=== PATIENT | female | born 1980 | race African-American/Black ===

== ENCOUNTER 2016-05-25 12:54 | Inpatient (IN) | payer BC ==
--- NOTE | ~2016-05-25 | HP ---
History And Physical [place] [id number] [place] [place]. [address] NAME: STEPHEN BREWER : 80 STATUS : ADM IN [facility]#: [id number] AGE: 35 ADM/REG DATE : 05/25/16 MR#: [id number] REPORT SERV DATE: 05/25/16 DICTATED BY: VELMA MARSH DATE: 05/25/16 REPORT STATUS : Draft TRANSCRIBED BY: MODL DATE: 05/25/16 DATE OF ADMISSION: 05/25/2016 REASON FOR ADMISSION: Typical sickle cell crisis. ONCOLOGIST: Dr. Nava. PALLIATIVE CARE: Dr. Allred. CHIEF COMPLAINT: "I started having some left shoulder pain again." HISTORY OF PRESENT ILLNESS: A 35-year-old female with a known history of sickle cell with the last crisis approximately three months ago, followed by Dr. Nava along with Dr. Allred in the outpatient setting. The patient states that she after being discharged in mid February for sickle cell crisis. She followed up with Dr. Nava just a few weeks ago along with Dr. Allred for routine follow up. She started having some of her typical sickle cell pain starting yesterday. She describes it starting on her left shoulder with some numbness in her hand and radiating to her chest area and then down her right leg. She states that she has a little bit of shortness of breath, but denies any fever, chills, cough, nausea, or vomiting. In the emergency room, she was given two doses of approximately 1 mg of IV Dilaudid. She does not know any relief of her symptoms. She did take some extra oxycodone at home to help relieve the pain, but did not seem to help. REVIEW OF SYSTEMS: As per HPI. Otherwise, 10-point system were reviewed are negative. PAST MEDICAL HISTORY: Sickle cell disease, iron overload, chronic diastolic dysfunction, history of avascular necrosis, status post bilateral placement of shoulder and hip, history of an MRSA hip infection, history of DVT/PE, on chronic anticoagulation for life, hypertension, iron overload with secondary hemochromatosis, chronic leukocytosis. PAST SURGICAL HISTORY: Bilateral shoulder surgery, bilateral hip surgery cholecystectomy, tubal ligation, . ALLERGIES: TO PENICILLIN, UNKNOWN REACTION AND MORPHINE CAUSES HER TO HAVE SHORTNESS OF BREATH. SOCIAL HISTORY: She denies any tobacco, alcohol or illegal drug use. She is . Has a daughter. FAMILY HISTORY: Sister and aunt with sickle cell. MEDICATIONS: Includes albuterol p.r.n. wheezing; Exjade 500 mg daily, folic acid 1 mg daily, hydroxyurea 500 mg twice, Remeron 15 mg at bedtime, Roxicodone 30 mg to 60 mg four times a day p.r.n. pain, OxyContin 240 mg three times a day. Scheduled Phenergan 25 mg p.r.n. nausea, and Xarelto 20 mg at bedtime. History And Physical [address] [place]. [address] NAME: STEPHEN BREWER : 80 STATUS : ADM IN [facility]#: [id number] AGE: 35 ADM/REG DATE : 05/25/16 MR#: [id number] REPORT SERV DATE: 05/25/16 DICTATED BY: VELMA MARSH DATE: 05/25/16 REPORT STATUS : Draft TRANSCRIBED BY: FLORENTINO DATE: 05/25/16 PHYSICAL EXAMINATION: VITAL SIGNS: Blood pressure is 121/57, pulse is 120 respirations 20, saturating 91% on room air. GENERAL: She is no acute distress, alert and oriented x3. Pleasant. HEENT: Normocephalic, atraumatic head. Extraocular muscles intact. Oropharynx clear. NECK: Supple without any JVD. HEART: Regular rate and rhythm. No murmurs, rubs, or gallops. PULMONARY: Bilateral crackles. No wheezes or rhonchi. ABDOMEN: Soft, nontender, nondistended. Positive bowel sounds. EXTREMITIES: Show no clubbing, cyanosis, or edema. NEUROLOGIC: No focal deficits. Cranial nerves II through XII grossly intact. PSYCHIATRIC: The patient is cooperative. Mood is appropriate. SKIN: Warm and dry. LAB: Show a white blood cell count of 17.4, hemoglobin of 8.4, MCV of 114, platelet count of 363. All of which is around her baseline. CMP shows albumin of 3.3, alkaline phosphatase of 120, ALT of 66, AST of 59, total bilirubin of 2.1. Chest x-ray shows cardiomegaly and clear lungs. IMPRESSION: 1. Typical sickle cell crisis. 2. Acute on chronic left shoulder pain. 3. Leukocytosis secondary to sickle cell. 4. Macrocytic anemia. 5. History of deep venous thrombosis/pulmonary on chronic anticoagulation. 6. Chronic pain dependent on narcotics. The plan is to continue her hydroxyurea, folic acid, and Exjade. Monitor labs. She does not demonstrate any signs of acute chest infection or hypoxia. We will watch for volume overload, as the patient has had a known history of bilateral lower extremity edema. Consider consulting Palliative Care if her pain is controlled. For right now, we will try a p.r.n. Dilaudid every two hours and then potentially switch to a RN PATIENT CARE pump if p.r.n. is not able to control her pain. MAGGIE/FLORENTINO Velma Marsh MD / [id number] CC: MD Dario He M.D. History And Physical [address] [address] NAME: STEPHEN BREWER : 80 STATUS : ADM IN [facility]#: [id number] AGE: 35 ADM/REG DATE : 05/25/16 MR#: [id number] REPORT SERV DATE: 05/25/16 DICTATED BY: VELMA MARSH DATE: 05/25/16 REPORT STATUS : Draft TRANSCRIBED BY: MODL DATE: 05/25/16 Harish Allred M.D.
--- NOTE | ~2016-05-25 | DS ---
Discharge Summary [place] [address] [place]. [address] NAME: STEPHEN BREWER : 80 STATUS : DIS IN PAT#: [id number] AGE: 35 ADM/REG DATE : 05/25/16 MR#: [id number] REPORT SERV DATE: 06/01/16 DICTATED BY: VELMA MARSH DATE: 05/31/16 REPORT STATUS : Draft TRANSCRIBED BY: FLORENTINO DATE: 05/31/16 ADMISSION DATE: 05/25/2016 DISCHARGE DATE: 05/31/2016 REASON FOR ADMISSION: Typical sickle cell crisis. HISTORY OF PRESENT ILLNESS: Please refer to my history and physical dated 05/25/2016, for complete details regarding the patient's admission. The patient was admitted to the Hospitalist Service for management of sickle cell crisis. HOSPITAL COURSE: The patient had an uncomplicated hospital course. She presented with her typical sickle cell crisis, namely pain in her left shoulder, retrosternal chest pain, and pain in her right leg. Typically she was placed on a Dilaudid INTERNAL MEDICINE NURSE PRACTITIONER pump; however, this admission I placed her on 2 mg IV Dilaudid every 2 hours as needed for pain, as her crisis did not appear to be too bad in the ER. She remained on IV Dilaudid every 2 hours for the complete hospitalization. On the day of discharge, she was requesting to go home. I also continued her home pain medication. Her labs were the same as typical with chronic leukocytosis and microcytic anemia. The patient has reached maximal hospitalization, will be discharged home today in a stable condition. DISCHARGE DIAGNOSES: 1. Typical acute sickle cell crisis. 2. Acute on chronic left shoulder pain from crisis. 3. Leukocytosis secondary to sickle cell. 4. Macrocytic anemia. 5. Chronic pain, dependent on narcotics. 6. History of deep venous thrombosis, on chronic anticoagulation. PROCEDURES: Include chest x-ray. DISCHARGE MEDICATIONS: 1. Folic acid 1 mg daily. 2. Hydroxyurea 500 mg twice a day. 3. Remeron 15 mg at bedtime. 4. Xarelto 20 mg at bedtime. 5. Roxicodone 30 mg to 60 mg every 4 hours as needed for pain. 6. OxyContin 240 mg three times a day scheduled. 7. Phenergan p.r.n. 8. Exjade 500 mg daily. 9. ProAir p.r.n. The patient to followup with Dr. Allred, who is her Palliative Care doctor along with Dr. Nava, her sickle cell doctor as scheduled. Discharge Summary [address] [address] NAME: STEPHEN BREWER : 80 STATUS : DIS IN PAT#: [id number] AGE: 35 ADM/REG DATE : 05/25/16 MR#: [id number] REPORT SERV DATE: 06/01/16 DICTATED BY: VELMA MARSH DATE: 05/31/16 REPORT STATUS : Draft TRANSCRIBED BY: FLORENTINO DATE: 05/31/16 JENNIE Velma Marsh MD / [id number] CC: Velma Marsh MD
[~2016-05-25 12:54] MED LIST: ACET500CAP PO; ALBUTEROL PO; ALER-CAP25 MG PO; ANTIBIOTIC; BACDS PO; BEN25 PO; C25 PO; CIP5 PO; CLINDA150 PO; COUMADIN4 MG PO; COUMADIN6 MG PO; COUMADIN7.5 MG PO; CUBICIN500 MG IV; DIGITEK0.125 MG PO; DIGITEK0.25 MG PO; DIL4TAB PO; DILAUDID8 MG PO; DOLOPHINE10 MG PO; DSS PO; DURA100 TOP; EXJADE500 MG PO; FOLIC PO; HUMI PO; HYDREA PO; IBU800 PO; KADIAN100 MG PO; KADIAN60 MG PO; L20 PO; LAN25 PO; LIOR10 PO; LOP25 PO; LORTAB10 PO; MAGOX4 PO; METHATAB10 PO; METOPROLOL; MIRALAXPKT PO; MOMUD PO; MONODOX100 MG PO; MS CONTIN200 MG PO; MULTIPLE VIT PO; MVI PO; MYLUD PO; NYQUIL LIQUID PO; NYS500UDL PO; OXYCON80 PO; PAIN TOP; PCET PO; PERCOCET1 TA2 PO; PERCOCET1 TA4 PO; PR25 PO; PROAIR HFA INH; REM15 PO; REMERON PO; ROXICODONE15 MG PO; ROXICODONE30 MG PO; SENOKOTS PO; SENTAB PO; T PO; TYLENOL SIN1 PO; V5 PO; VALTREX1 GM PO; VANCO500 IV; VOLTAREN1 % TOP; XARELTO15 MG; XARELTO15 MG PO; XARELTO20 MG PO
[2016-05-25 14:27] LABS: ER CBC TAT 0 Hrs 09 Mins; HEMATOCRIT 23.6 % (36.0-48.0); HEMOGLOBIN 8.4 g/dL (12.0-16.0); MEAN CORPUS HGB CONC 35.6 g/dL (32.0-36.0); MEAN CORPUSCULAR HEMOGLOB 40.8 pg (26.0-34.0); NUCLEATED RED BLOOD CELLS 7.4 /100WBC (0-0); PLATELET COUNT 363 10/3/uL (150-400); RED CELL COUNT 2.06 10/6/uL (4.0-5.6); WHITE BLOOD CELLS 17.4 10/3/uL (4.5-10.5)
[2016-05-25 14:28] LABS: MANUAL DIFF YES %; MEAN CORPUSCULAR VOLUME 114.6 fL (80-100); RBC DISTRIBUTION WIDTH 17.8 % (12.0-16.0)
[2016-05-25 14:29] LABS: RETICULOCYTE COUNT 18.1 % (0.5-2.5); RETICULOCYTE COUNT ABSOLUTE 366.8 10/3/uL (20.2-119.8)
[2016-05-25 14:34] LABS: INTERNATIONAL NORMAL RATI 1.8 UNITS (-)
[2016-05-25 14:40] LABS: A/G RATIO 0.8 (0.7-1.9); ALBUMIN 3.3 G/DL (3.5-5.0); ALKALINE PHOSPHATASE 120 U/L (45-117); BUN (BLOOD UREA NITROGEN) 7 MG/DL (6-23); CALCIUM, SERUM 8.2 MG/DL (8.5-10.4); CHLORIDE, SERUM 108 MMOL/L (96-112); CO2 (CARBON DIOXIDE) 26 MMOL/L (24-34); GFR AFRICAN AMERICAN 137 ML/MIN (>=60); GFR NON AFRICAN AMERICAN 118 ML/MIN (>=60); GLUCOSE, SERUM 101 MG/DL (60-99); SGOT(AST) 59 U/L (5-40); SGPT(ALT) 66 U/L (5-65); SODIUM, SERUM 142 MMOL/L (135-148); TOTAL PROTEIN 7.3 G/DL (6.0-8.5)
[2016-05-25 14:41] LABS: POTASSIUM, SERUM 3.9 MMOL/L (3.5-5.3); TOTAL BILIRUBIN 2.1 MG/DL (0-1.2)
[2016-05-25 14:47] LABS: EOSINOPHILS 10 %; EOSINOPHILS ABSOLUTE (CALC) 1.74 10/3/uL (0.0-0.53); ER DIFF TAT 0 Hrs 29 Mins; LYMPHOCYTES 32 %; LYMPHOCYTES ABSOLUTE (CALC) 5.57 10/3/uL (0.67-4.30); MONOCYTES 6 %; MONOCYTES ABSOLUTE (CALC) 1.04 10/3/uL (0.21-1.20); NEUTROPHILS ABSOLUTE (CALC) 9.05 10/3/uL (2.02-8.40); SEGMENTED NEUTROPHIL (0) 52 %; TOTAL NUCLEATED CELLS 100
[2016-05-25 14:48] LABS: ANISOCYTOSIS 1+ (5-10/OIF) (0-5/OIF); PLATELET ESTIMATE ADQ (ADEQUATE); POLYCHROMASIA 1+ (2-5/OIF) (0-1/OIF); RBC MORPHOLOGY ABN (NORMAL)
[2016-05-25] MEDS ORDERED: XARELTO20 MG PO (15:59)
[2016-05-25] MEDS ORDERED: FOLIC PO (15:59)
[2016-05-25] MEDS ORDERED: PR25 PO (16:02)
[2016-05-25] MEDS ORDERED: HYDREA PO (16:02)
[2016-05-25] MEDS ORDERED: ROXICODONE30 MG PO (16:03)
[2016-05-25] MEDS ORDERED: OXYCON80 PO (16:03)
[2016-05-25] MEDS ORDERED: EXJADE500 MG PO (16:04)
[2016-05-25] MEDS ORDERED: REM15 PO (16:04)
[2016-05-25] MEDS ORDERED: PROAIR HFA INH (16:04)
[2016-05-25 21:01] LABS: HEMOGLOBIN 8.1 g/dL (12.0-16.0); MEAN CORPUS HGB CONC 35.2 g/dL (32.0-36.0); MEAN CORPUSCULAR HEMOGLOB 40.7 pg (26.0-34.0); MEAN CORPUSCULAR VOLUME 115.6 fL (80-100); NUCLEATED RED BLOOD CELLS 8.2 /100WBC (0-0); PLATELET COUNT 331 10/3/uL (150-400); RBC DISTRIBUTION WIDTH 18.4 % (12.0-16.0); RED CELL COUNT 1.99 10/6/uL (4.0-5.6); WHITE BLOOD CELLS 19.2 10/3/uL (4.5-10.5)
[2016-05-25 21:03] LABS: MANUAL DIFF YES %
[2016-05-25 21:21] LABS: A/G RATIO 0.9 (0.7-1.9); ALBUMIN 3.4 G/DL (3.5-5.0); ALKALINE PHOSPHATASE 130 U/L (45-117); BUN (BLOOD UREA NITROGEN) 8 MG/DL (6-23); CALCIUM, SERUM 8.2 MG/DL (8.5-10.4); CHLORIDE, SERUM 107 MMOL/L (96-112); CO2 (CARBON DIOXIDE) 26 MMOL/L (24-34); CREATININE 0.57 MG/DL (0.55-1.02); FERRITIN 7514 NG/ML (8-252); GFR AFRICAN AMERICAN 139 ML/MIN (>=60); GFR NON AFRICAN AMERICAN 120 ML/MIN (>=60); GLOBULIN 3.9 G/DL (2.5-4.1); GLUCOSE, SERUM 92 MG/DL (60-99); IRON BINDING CAPACITY 172 MCG/DL (225-410); IRON, SERUM 171 MCG/DL (35-150); PHOSPHORUS, SERUM 3.4 MG/DL (2.5-4.5); POTASSIUM, SERUM 3.8 MMOL/L (3.5-5.3); SGOT(AST) 53 U/L (5-40); SGPT(ALT) 70 U/L (5-65); SODIUM, SERUM 141 MMOL/L (135-148); TOTAL BILIRUBIN 1.9 MG/DL (0-1.2); TOTAL PROTEIN 7.3 G/DL (6.0-8.5)
[2016-05-25 21:24] LABS: EOSINOPHILS 12 %; LYMPHOCYTES 42 %; LYMPHOCYTES ABSOLUTE (CALC) 8.06 10/3/uL (0.67-4.30); MONOCYTES 5 %; MONOCYTES ABSOLUTE (CALC) 0.96 10/3/uL (0.21-1.20); NEUTROPHILS ABSOLUTE (CALC) 7.87 10/3/uL (2.02-8.40); SEGMENTED NEUTROPHIL (0) 41 %; TOTAL NUCLEATED CELLS 100
[2016-05-25 21:25] LABS: ANISOCYTOSIS 1+ (5-10/OIF) (0-5/OIF); PLATELET ESTIMATE ADQ (ADEQUATE); POLYCHROMASIA 2+ (5-10/OIF) (0-1/OIF)
[2016-05-25 22:34] LABS: PROCALCITONIN 0.37 ng/mL (<0.5)
[2016-05-26 09:08] LABS: HEMATOCRIT 24.4 % (36.0-48.0); HEMOGLOBIN 8.7 g/dL (12.0-16.0); MEAN CORPUS HGB CONC 35.7 g/dL (32.0-36.0); MEAN CORPUSCULAR HEMOGLOB 41.6 pg (26.0-34.0); MEAN CORPUSCULAR VOLUME 116.7 fL (80-100); MEAN PLATELET VOLUME 9.1 fL (9.2-13.0); NUCLEATED RED BLOOD CELLS 13.4 /100WBC (0-0); PLATELET COUNT 363 10/3/uL (150-400); RBC DISTRIBUTION WIDTH 18.5 % (12.0-16.0); RED CELL COUNT 2.09 10/6/uL (4.0-5.6); WHITE BLOOD CELLS 18.9 10/3/uL (4.5-10.5)
[2016-05-26 09:09] LABS: MANUAL DIFF YES %
[2016-05-26 09:15] LABS: A/G RATIO 0.7 (0.7-1.9); ALBUMIN 3.3 G/DL (3.5-5.0); BUN (BLOOD UREA NITROGEN) 8 MG/DL (6-23); CALCIUM, SERUM 8.1 MG/DL (8.5-10.4); CHLORIDE, SERUM 108 MMOL/L (96-112); CO2 (CARBON DIOXIDE) 26 MMOL/L (24-34); CREATININE 0.56 MG/DL (0.55-1.02); GFR AFRICAN AMERICAN 140 ML/MIN (>=60); GFR NON AFRICAN AMERICAN 121 ML/MIN (>=60); GLOBULIN 4.5 G/DL (2.5-4.1); GLUCOSE, SERUM 98 MG/DL (60-99); SGPT(ALT) 73 U/L (5-65); SODIUM, SERUM 142 MMOL/L (135-148); TOTAL BILIRUBIN 1.9 MG/DL (0-1.2); TOTAL PROTEIN 7.8 G/DL (6.0-8.5)
[2016-05-26 09:16] LABS: ALKALINE PHOSPHATASE 151 U/L (45-117); POTASSIUM, SERUM 4.5 MMOL/L (3.5-5.3); SGOT(AST) 67 U/L (5-40)
[2016-05-26 09:29] LABS: BAND NEUTROPHILS 1 %; BASOPHILS 1 %; BASOPHILS ABSOLUTE (CALC) 0.19 10/3/uL (0.0-0.16); EOSINOPHILS 12 %; EOSINOPHILS ABSOLUTE (CALC) 2.27 10/3/uL (0.0-0.53); IMMATURE GRANS ABSOLUTE (CALC) 0.76 10/3/uL (0.0-0.11); LYMPHOCYTES 31 %; LYMPHOCYTES ABSOLUTE (CALC) 5.86 10/3/uL (0.67-4.30); METAMYELOCYTES 4 %; MONOCYTES 8 %; MONOCYTES ABSOLUTE (CALC) 1.51 10/3/uL (0.21-1.20); NEUTROPHILS ABSOLUTE (CALC) 8.32 10/3/uL (2.02-8.40); SEGMENTED NEUTROPHIL (0) 43 %; TOTAL NUCLEATED CELLS 100
[2016-05-26 09:30] LABS: ANISOCYTOSIS 1+ (5-10/OIF) (0-5/OIF); PLATELET ESTIMATE ADQ (ADEQUATE); POLYCHROMASIA 2+ (5-10/OIF) (0-1/OIF); TARGET CELLS FEW (3-10/OIF) (0-1/OIF)
[2016-05-26 09:31] LABS: SICKLE CELLS(NOT ORD) FEW (3-10/OIF)
[2016-05-28 07:00] LABS: A/G RATIO 0.7 (0.7-1.9); ALBUMIN 3.3 G/DL (3.5-5.0); ALKALINE PHOSPHATASE 150 U/L (45-117); BUN (BLOOD UREA NITROGEN) 5 MG/DL (6-23); CHLORIDE, SERUM 108 MMOL/L (96-112); CO2 (CARBON DIOXIDE) 24 MMOL/L (24-34); GFR AFRICAN AMERICAN 137 ML/MIN (>=60); GFR NON AFRICAN AMERICAN 118 ML/MIN (>=60); GLOBULIN 4.7 G/DL (2.5-4.1); GLUCOSE, SERUM 97 MG/DL (60-99); PHOSPHORUS, SERUM 3.8 MG/DL (2.5-4.5); SGPT(ALT) 61 U/L (5-65); SODIUM, SERUM 142 MMOL/L (135-148)
[2016-05-28 07:01] LABS: POTASSIUM, SERUM 4.6 MMOL/L (3.5-5.3)
[2016-05-28 07:02] LABS: HEMATOCRIT 23.9 % (36.0-48.0); HEMOGLOBIN 8.4 g/dL (12.0-16.0); MEAN CORPUS HGB CONC 35.1 g/dL (32.0-36.0); MEAN CORPUSCULAR HEMOGLOB 41.4 pg (26.0-34.0); MEAN CORPUSCULAR VOLUME 117.7 fL (80-100); MEAN PLATELET VOLUME 9.3 fL (9.2-13.0); NUCLEATED RED BLOOD CELLS 30.9 /100WBC (0-0); PLATELET COUNT 376 10/3/uL (150-400); RBC DISTRIBUTION WIDTH 18.7 % (12.0-16.0); RED CELL COUNT 2.03 10/6/uL (4.0-5.6); SGOT(AST) 57 U/L (5-40); TOTAL BILIRUBIN 1.1 MG/DL (0-1.2); WHITE BLOOD CELLS 18.7 10/3/uL (4.5-10.5)
[2016-05-28 07:03] LABS: MANUAL DIFF YES %
[2016-05-28 07:15] LABS: BASOPHILS 0.5 %; BASOPHILS ABSOLUTE 0.09 10/3/uL (0.0-0.16)
[2016-05-28 07:23] LABS: ANISOCYTOSIS 1+ (5-10/OIF) (0-5/OIF); EOSINOPHILS 4 %; EOSINOPHILS ABSOLUTE (CALC) 0.75 10/3/uL (0.0-0.53); LYMPHOCYTES 32 %; LYMPHOCYTES ABSOLUTE (CALC) 5.98 10/3/uL (0.67-4.30); MONOCYTES 8 %; NEUTROPHILS ABSOLUTE (CALC) 10.47 10/3/uL (2.02-8.40); POLYCHROMASIA 3+ (>10/OIF) (0-1/OIF); RBC MORPHOLOGY ABN (NORMAL); SEGMENTED NEUTROPHIL (0) 56 %; TOTAL NUCLEATED CELLS 100
[2016-05-28 07:24] LABS: SICKLE CELLS(NOT ORD) MANY (>20/OIF); TARGET CELLS MANY (>20/OIF) (0-1/OIF)
[2016-09-20] MEDS ORDERED: FOLIC PO (16:18)
[2016-09-20] MEDS ORDERED: HYDREA PO (16:19)
[2016-09-20] MEDS ORDERED: XARELTO20 MG PO (16:19)
[2016-09-20] MEDS ORDERED: OXYCON80 PO (16:20)
[2016-09-20] MEDS ORDERED: EXJADE500 MG PO (16:21)
[2016-09-20] MEDS ORDERED: ROXICODONE30 MG PO (16:21)
[2016-09-20] MEDS ORDERED: PR25 PO (16:21)
[2016-09-20] MEDS ORDERED: PROVHFA INH (16:21)
== END 2016-05-31 13:33 | disposition home or self-care (01) | DRG 812 ==
LOC: ER 12:54 → 5SO 18:05
PROVIDERS: Emergency Medicine; Internal Medicine
DX: D57.01 Hb-SS disease with acute chest syndrome (principal); F11.20 Opioid dependence, uncomplicated; I10 Essential (primary) hypertension; Z96.643 Presence of artificial hip joint, bilateral; Z96.612 Presence of left artificial shoulder joint; Z96.611 Presence of right artificial shoulder joint; Z86.718 Personal history of other venous thrombosis and embolism; Z86.711 Personal history of pulmonary embolism; Z90.49 Acquired absence of other specified parts of digestive tract; Z98.890 Other specified postprocedural states; Z88.0 Allergy status to penicillin; Z88.5 Allergy status to narcotic agent; Z79.899 Other long term (current) drug therapy; G89.29 Other chronic pain; M25.512 Pain in left shoulder; M25.511 Pain in right shoulder; D72.829 Elevated white blood cell count, unspecified; D53.9 Nutritional anemia, unspecified; Z79.01 Long term (current) use of anticoagulants
CPT/HCPCS: 71010; 80053; 82728; 83540; 83550; 83735; 84100; 84145; 85025; 85045; 85610; 96374; 96375; 99285; A9270-GY; J1170; J1200; J2405

== ENCOUNTER 2016-07-11 12:19 | Inpatient (IN) | payer BC ==
--- NOTE | ~2016-07-11 | DS ---
Discharge Summary [facility] [address] [facility] [place]. [address] NAME: STEPHEN BREWER : 80 STATUS : DIS IN PAT#: [id number] AGE: 35 ADM/REG DATE : 07/11/16 MR#: [id number] REPORT SERV DATE: 07/17/16 DICTATED BY: MELL CHARLTON DATE: 07/16/16 REPORT STATUS : Draft TRANSCRIBED BY: MODL DATE: 07/16/16 ADMISSION DATE: 07/11/2016 DISCHARGE DATE: 07/16/2016 DISCHARGE DIAGNOSES: 1. Sickle cell pain crisis. 2. Sickle cell anemia. 3. Deep venous thrombosis, on . 4. Chronic leukocytosis. 5. Constipation. CONSULTATION: Palliative Care, Dr. Allred. IMAGING: Chest x-ray, 07/11/2016, impression, bibasilar discoid atelectasis. The patient does not have evidence of focal pneumonia. LABORATORY DATA: WBCs 18.6, hemoglobin 7.4, hematocrit 21.1, and platelet count is 444. Sodium is 142, potassium of 4.1, chloride is 115, CO2 is 24, BUN is 8, creatinine is 0.62, glucose is 102, calcium is 7.9, total protein 7.1, albumin is 3.2, globulin is 3.9, total bilirubin is 1.2, alkaline phos is 148, ALT is 78, AST is 64, and LDH is 259. HOSPITAL STAY: Please refer to history and physical dictated by Dr. Luiz Conti on 07/11/2016 for complete admission details. This patient is a 35-year-old female with a known history of sickle cell anemia, last admitted in May 2016. The patient did present to [facility] Emergency Room with complaints of acute pain crisis. At that time, symptoms were generalized joint pain. Hemoglobin was 8.8 and hematocrit was 24.2. The patient was admitted to the hospital for pain control. Dr. Allred was consulted. Pain medications were adjusted per Dr. Allred. The patient was started on prednisone, which seem to help alleviate some pain. The patient was initially on a BUSINESS INSTRUCTOR pump, this was discontinued. The patient's anemia was monitored during her stay, which did remain stable. No blood transfusions were needed. The patient did present with a history of DVT, which was continued on during her hospital stay. The patient does have chronic leukocytosis, which was monitored. The patient was started on a bowel regimen due to possible opioid-induced constipation. The patient is being discharged home in hemodynamically stable condition. She will follow up with Dr. Allred as outpatient and primary care. DISCHARGE MEDICATIONS: 1. Exjade 500 mg one p.o. daily. 2. Folic acid 1 mg one p.o. daily. 3. Hydrea 500 mg one p.o. twice daily. 4. Xarelto 20 mg one p.o. at bedtime. 5. OxyContin 80 mg, 240 mg p.o. every eight hours. 6. Oxycodone 30 mg one p.o. every four hours for breakthrough pain. 7. Prednisone 20 mg one p.o. at breakfast. Discharge Summary [address] [address] NAME: STEPHEN BREWER : 80 STATUS : DIS IN PAT#: [id number] AGE: 35 ADM/REG DATE : 07/11/16 MR#: [id number] REPORT SERV DATE: 07/17/16 DICTATED BY: MELL CHARLTON DATE: 07/16/16 REPORT STATUS : Draft TRANSCRIBED BY: FLORENTINO DATE: 07/16/16 8. Albuterol two puffs inhaled every four hours p.r.n. for shortness of breath. This discharge took less than 30 minutes. DICTATED BY: DELORIS Coronel/FLORENTINO Mell Charlton NP / [id number] CC: Shmuel Mariano M.D.
--- NOTE | ~2016-07-11 | HP ---
History And Physical [place] [address] [facility] [place] [place]. [address] NAME: STEPHEN BREWER : 80 STATUS : ADM IN [facility]#: [id number] AGE: 35 ADM/REG DATE : 07/11/16 MR#: [id number] REPORT SERV DATE: 07/11/16 DICTATED BY: Jacques NOWAK DATE: 07/11/16 REPORT STATUS : Draft TRANSCRIBED BY: MODL DATE: 07/11/16 DATE OF ADMISSION: 07/11/2016 HISTORY OF PRESENT ILLNESS: A 35-year-old female patient with known history of sickle cell anemia, last admitted here in 05/2016, presents to the ER today with an acute pain crisis. Symptoms are generalized in multiple joints and generalized weakness, and have been escalating for two weeks. Her hemoglobin is 8.8. Her reticulocyte count is elevated to 24.2. The patient denies any problems with obtaining her home medications or compliance with her home medications. She will be admitted to defensive monitoring for ongoing evaluation of acute pain crisis. PAST MEDICAL HISTORY: Includes sickle cell anemia; iron overload; avascular necrosis of the joints with bilateral shoulder and bilateral hip arthroplasties; venous thromboembolism, on chronic Xarelto therapy; chronic pain syndrome; history of MRSA infection of the hip. SOCIAL HISTORY: Good family support. Denies alcohol or tobacco. REVIEW OF SYSTEMS: As per HPI. No high fever. No shaking chills. No nausea or vomiting. Remainder of ten- point review of systems negative, except as mentioned above. FAMILY HISTORY: Positive for sickle cell. PHYSICAL EXAMINATION: VITAL SIGNS: Temperature 98.6, heart rate 112 and regular, respirations 20, saturation 95%, blood pressure 108/72. GENERAL: Chronically ill-appearing female patient, conversant, who appears clearly uncomfortable. HEENT: Pupils are equal, round, and reactive to light. Extraocular muscles are intact. Oropharynx clear. NECK: Without JVD or bruit. LUNGS: Clear. HEART: Regular, but tachycardic. 1/6 murmur noted in left lower sternal border. ABDOMEN: Soft. Positive bowel sounds without organomegaly or mass. EXTREMITIES: No edema. Pulses are +1. SKIN: Without rash or ecchymotic area. JOINTS: With arthritic changes noted with multiple previous joint replacements with clean, dry, and intact incisions. NEUROLOGIC: Cranial nerves grossly intact. Motor exam is diminished, but nonfocal. Sensation unremarkable. Gait was not assessed. GENITOURINARY: Deferred. RECTAL: Deferred. LABORATORY DATA: Available data: White count is 18.5, hemoglobin 8.8, hematocrit 24.9, platelets 556. Sodium 139, potassium 3.9, chloride 108, bicarb 25, BUN 6, creatinine 0.63. Reticulocyte count is 24.2. History And Physical [address] [address] NAME: STEPHEN BREWER : 80 STATUS : ADM IN PAT#: [id number] AGE: 35 ADM/REG DATE : 07/11/16 MR#: [id number] REPORT SERV DATE: 07/11/16 DICTATED BY: Jacques NOWAK DATE: 07/11/16 REPORT STATUS : Draft TRANSCRIBED BY: FLORENTINO DATE: 07/11/16 IMPRESSION: A 35-year-old female patient with recurrent pain crisis secondary to underlying sickle cell anemia. Comorbidities as outlined above. PLAN: Admit. Cardiac Surgery monitoring. Attending Dr. Nowak. Consult Dr. Allred, her pain medicine, palliative care physician. Electrolyte replacement guidelines. Routine vitals. O2 per protocol. Diet as tolerated. Followup laboratory will be CBC, BMP, urinalysis, and reticulocyte count. Hydrate with saline at 125 an hour. Reasonable pain and nausea control will be offered. We will continue her home medications, which have been confirmed via pharmacy, and add Dilaudid 2 mg IV q.2 hours as needed for breakthrough pain. Continue other home medications per med reconciliation form. Further recommendations for treatment pending observation of her clinical course and review of pending data. MAXIMO/FLORENTINO Jacques Nowak M.D. / [id number] CC: Nadya Luke M.D.
[2016-07-11 14:03] LABS: BASOPHILS 0.5 %; BASOPHILS ABSOLUTE 0.09 10/3/uL (0.0-0.16); EOSINOPHILS 0.8 %; EOSINOPHILS ABSOLUTE 0.14 10/3/uL (0.0-0.53); ER CBC TAT 0 Hrs 03 Mins; HEMATOCRIT 24.9 % (36.0-48.0); HEMOGLOBIN 8.8 g/dL (12.0-16.0); IMMATURE GRANULOCYTES 1.4 %; IMMATURE GRANULOCYTES ABSOLUTE 0.25 10/3/uL (0.0-0.11); LYMPHOCYTES 23.4 %; LYMPHOCYTES ABSOLUTE 4.33 10/3/uL (0.67-4.30); MEAN CORPUS HGB CONC 35.3 g/dL (32.0-36.0); MEAN PLATELET VOLUME 9.2 fL (9.2-13.0); MONOCYTES 8.3 %; MONOCYTES ABSOLUTE 1.53 10/3/uL (0.21-1.20); NEUTROPHILS 65.6 %; NEUTROPHILS ABSOLUTE 12.17 10/3/uL (2.02-8.40); NUCLEATED RED BLOOD CELLS 11.4 /100WBC (0-0); RBC DISTRIBUTION WIDTH 17.6 % (12.0-16.0); RED CELL COUNT 2.41 10/6/uL (4.0-5.6); WHITE BLOOD CELLS 18.5 10/3/uL (4.5-10.5)
[2016-07-11 14:04] LABS: MANUAL DIFF NO %; MEAN CORPUSCULAR HEMOGLOB 36.5 pg (26.0-34.0); MEAN CORPUSCULAR VOLUME 103.3 fL (80-100); PLATELET COUNT 556 10/3/uL (150-400)
[2016-07-11 14:13] LABS: RETICULOCYTE COUNT 24.2 % (0.5-2.5); RETICULOCYTE COUNT ABSOLUTE 583.7 10/3/uL (20.2-119.8)
[2016-07-11 14:20] LABS: A/G RATIO 0.9 (0.7-1.9); ALBUMIN 3.8 G/DL (3.5-5.0); BUN (BLOOD UREA NITROGEN) 6 MG/DL (6-23); CALCIUM, SERUM 8.5 MG/DL (8.5-10.4); CHLORIDE, SERUM 108 MMOL/L (96-112); CO2 (CARBON DIOXIDE) 25 MMOL/L (24-34); CREATININE 0.63 MG/DL (0.55-1.02); GFR AFRICAN AMERICAN 135 ML/MIN (>=60); GFR NON AFRICAN AMERICAN 116 ML/MIN (>=60); GLOBULIN 4.3 G/DL (2.5-4.1); GLUCOSE, SERUM 107 MG/DL (60-99); POTASSIUM, SERUM 3.9 MMOL/L (3.5-5.3); SGOT(AST) 72 U/L (5-40); SGPT(ALT) 79 U/L (5-65); SODIUM, SERUM 139 MMOL/L (135-148); TOTAL PROTEIN 8.1 G/DL (6.0-8.5)
[2016-07-11 14:21] LABS: ALKALINE PHOSPHATASE 129 U/L (45-117); TOTAL BILIRUBIN 2.6 MG/DL (0-1.2)
[2016-07-11] MEDS ORDERED: FOLIC PO (15:33)
[2016-07-11] MEDS ORDERED: XARELTO20 MG PO (15:33)
[2016-07-11] MEDS ORDERED: HYDREA PO (15:33)
[2016-07-11] MEDS ORDERED: OXYCON80 PO (15:34)
[2016-07-11] MEDS ORDERED: EXJADE500 MG PO (15:35)
[2016-07-11] MEDS ORDERED: ROXICODONE30 MG PO (15:35)
[2016-07-11] MEDS ORDERED: PROVHFA INH (15:36)
[2016-07-11 16:19] LABS: ASCORBIC ACID (UR NOT ORDER) NEG (NEG); BILIRUBIN, URINE NEGATIVE (NEG); ER URINALYSIS TAT 0 Hrs 13 Mins; KETONE, URINE TRACE MG/DL (NEG); LEUKOCYTE ESTERASE(NOT OR NEG (NEG); NITRITE (URINE) NEG (NEG); WBC (NOT ORDERED) (RFLEX) < 1 (0-5)
[2016-07-12 12:41] LABS: BASOPHILS 0.3 %; BASOPHILS ABSOLUTE 0.06 10/3/uL (0.0-0.16); EOSINOPHILS 0.3 %; EOSINOPHILS ABSOLUTE 0.07 10/3/uL (0.0-0.53); HEMOGLOBIN 7.7 g/dL (12.0-16.0); IMMATURE GRANULOCYTES ABSOLUTE 0.22 10/3/uL (0.0-0.11); LYMPHOCYTES 21.2 %; LYMPHOCYTES ABSOLUTE 4.55 10/3/uL (0.67-4.30); MEAN CORPUS HGB CONC 35.3 g/dL (32.0-36.0); MEAN CORPUSCULAR HEMOGLOB 36.7 pg (26.0-34.0); MEAN CORPUSCULAR VOLUME 103.8 fL (80-100); MEAN PLATELET VOLUME 8.8 fL (9.2-13.0); NEUTROPHILS 64.2 %; NEUTROPHILS ABSOLUTE 13.79 10/3/uL (2.02-8.40); NUCLEATED RED BLOOD CELLS 9.6 /100WBC (0-0); PLATELET COUNT 486 10/3/uL (150-400); RBC DISTRIBUTION WIDTH 17.3 % (12.0-16.0); WHITE BLOOD CELLS 21.5 10/3/uL (4.5-10.5)
[2016-07-12 12:44] LABS: HEMATOCRIT 21.8 % (36.0-48.0)
[2016-07-12 12:45] LABS: MANUAL DIFF NO %
[2016-07-12 12:46] LABS: BUN (BLOOD UREA NITROGEN) 4 MG/DL (6-23); CHLORIDE, SERUM 112 MMOL/L (96-112); CO2 (CARBON DIOXIDE) 24 MMOL/L (24-34); CREATININE 0.51 MG/DL (0.55-1.02); GFR AFRICAN AMERICAN 144 ML/MIN (>=60); GFR NON AFRICAN AMERICAN 125 ML/MIN (>=60); GLUCOSE, SERUM 111 MG/DL (60-99); POTASSIUM, SERUM 3.9 MMOL/L (3.5-5.3); SODIUM, SERUM 143 MMOL/L (135-148)
[2016-07-12 12:47] LABS: RETICULOCYTE COUNT 18.9 % (0.5-2.5); RETICULOCYTE COUNT ABSOLUTE 399.6 10/3/uL (20.2-119.8)
[2016-07-12 12:59] LABS: ANISOCYTOSIS 1+ (5-10/OIF) (0-5/OIF); MACROCYTES 1+ (5-10/OIF) (0-5/OIF); PLATELET ESTIMATE SLT INC (ADEQUATE); POLYCHROMASIA 1+ (2-5/OIF) (0-1/OIF)
[2016-07-12 13:00] LABS: SICKLE CELLS(NOT ORD) FEW (3-10/OIF)
[2016-07-13 05:18] LABS: HEMATOCRIT 22.6 % (36.0-48.0); HEMOGLOBIN 7.9 g/dL (12.0-16.0); MEAN CORPUSCULAR HEMOGLOB 36.9 pg (26.0-34.0); MEAN CORPUSCULAR VOLUME 105.6 fL (80-100); PLATELET COUNT 475 10/3/uL (150-400); RBC DISTRIBUTION WIDTH 17.9 % (12.0-16.0); RED CELL COUNT 2.14 10/6/uL (4.0-5.6); WHITE BLOOD CELLS 21.9 10/3/uL (4.5-10.5)
[2016-07-13 05:21] LABS: MANUAL DIFF YES %
[2016-07-13 05:22] LABS: RETICULOCYTE COUNT 17.5 % (0.5-2.5); RETICULOCYTE COUNT ABSOLUTE 370.4 10/3/uL (20.2-119.8)
[2016-07-13 05:31] LABS: BAND NEUTROPHILS 5 %; EOSINOPHILS 4 %; EOSINOPHILS ABSOLUTE (CALC) 0.88 10/3/uL (0.0-0.53); LYMPHOCYTES 32 %; LYMPHOCYTES ABSOLUTE (CALC) 7.01 10/3/uL (0.67-4.30); MONOCYTES 6 %; MONOCYTES ABSOLUTE (CALC) 1.31 10/3/uL (0.21-1.20); SEGMENTED NEUTROPHIL (0) 53 %; TOTAL NUCLEATED CELLS 100
[2016-07-13 05:32] LABS: ANISOCYTOSIS 1+ (5-10/OIF) (0-5/OIF); ELLIPTOCYTES 1+ (3-10/OIF) (0-2/OIF); MACROCYTES 1+ (5-10/OIF) (0-5/OIF); PLATELET ESTIMATE SLT INC (ADEQUATE); POIKILOCYTOSIS 1+ (5-10/OIF) (0-5/OIF); POLYCHROMASIA 1+ (2-5/OIF) (0-1/OIF); TARGET CELLS FEW (3-10/OIF) (0-1/OIF)
[2016-07-13 05:33] LABS: SICKLE CELLS(NOT ORD) OCC (0-2/OIF)
[2016-07-13 05:53] LABS: DIFFERENTIAL ORDERED Y
[2016-07-14 04:59] LABS: HEMOGLOBIN 7.5 g/dL (12.0-16.0); MEAN CORPUS HGB CONC 35.7 g/dL (32.0-36.0); MEAN CORPUSCULAR HEMOGLOB 36.9 pg (26.0-34.0); MEAN CORPUSCULAR VOLUME 103.4 fL (80-100); MEAN PLATELET VOLUME 8.9 fL (9.2-13.0); NUCLEATED RED BLOOD CELLS 9.1 /100WBC (0-0); PLATELET COUNT 421 10/3/uL (150-400); RBC DISTRIBUTION WIDTH 17.5 % (12.0-16.0); RED CELL COUNT 2.03 10/6/uL (4.0-5.6)
[2016-07-14 05:00] LABS: MANUAL DIFF YES %; WHITE BLOOD CELLS 12.3 10/3/uL (4.5-10.5)
[2016-07-14 05:16] LABS: A/G RATIO 0.8 (0.7-1.9); ALBUMIN 3.3 G/DL (3.5-5.0); ALKALINE PHOSPHATASE 126 U/L (45-117); BUN (BLOOD UREA NITROGEN) 8 MG/DL (6-23); CALCIUM, SERUM 8.2 MG/DL (8.5-10.4); CHLORIDE, SERUM 113 MMOL/L (96-112); CO2 (CARBON DIOXIDE) 23 MMOL/L (24-34); CREATININE 0.62 MG/DL (0.55-1.02); GFR AFRICAN AMERICAN 135 ML/MIN (>=60); GFR NON AFRICAN AMERICAN 117 ML/MIN (>=60); GLOBULIN 4.1 G/DL (2.5-4.1); GLUCOSE, SERUM 135 MG/DL (60-99); POTASSIUM, SERUM 4.5 MMOL/L (3.5-5.3); SGOT(AST) 50 U/L (5-40); SGPT(ALT) 62 U/L (5-65); SODIUM, SERUM 141 MMOL/L (135-148); TOTAL BILIRUBIN 1.4 MG/DL (0-1.2); TOTAL PROTEIN 7.4 G/DL (6.0-8.5)
[2016-07-14 05:20] LABS: BAND NEUTROPHILS 3 %; IMMATURE GRANS ABSOLUTE (CALC) 0.62 10/3/uL (0.0-0.11); LYMPHOCYTES 11 %; LYMPHOCYTES ABSOLUTE (CALC) 1.35 10/3/uL (0.67-4.30); METAMYELOCYTES 5 %; MONOCYTES 6 %; MONOCYTES ABSOLUTE (CALC) 0.74 10/3/uL (0.21-1.20); NEUTROPHILS ABSOLUTE (CALC) 9.59 10/3/uL (2.02-8.40); PLATELET ESTIMATE ADQ (ADEQUATE); SEGMENTED NEUTROPHIL (0) 75 %; SICKLE CELLS(NOT ORD) FEW (3-10/OIF); TARGET CELLS FEW (3-10/OIF) (0-1/OIF); TOTAL NUCLEATED CELLS 100
[2016-07-14 05:21] LABS: ANISOCYTOSIS 1+ (5-10/OIF) (0-5/OIF); MACROCYTES 1+ (5-10/OIF) (0-5/OIF)
[2016-07-15 04:53] LABS: HEMATOCRIT 21.1 % (36.0-48.0); HEMOGLOBIN 7.4 g/dL (12.0-16.0); MEAN CORPUS HGB CONC 35.1 g/dL (32.0-36.0); MEAN CORPUSCULAR HEMOGLOB 36.5 pg (26.0-34.0); MEAN CORPUSCULAR VOLUME 103.9 fL (80-100); MEAN PLATELET VOLUME 9.1 fL (9.2-13.0); NUCLEATED RED BLOOD CELLS 10.4 /100WBC (0-0); PLATELET COUNT 444 10/3/uL (150-400); RBC DISTRIBUTION WIDTH 17.8 % (12.0-16.0); RED CELL COUNT 2.03 10/6/uL (4.0-5.6)
[2016-07-15 04:54] LABS: MANUAL DIFF YES %; WHITE BLOOD CELLS 18.6 10/3/uL (4.5-10.5)
[2016-07-15 05:06] LABS: A/G RATIO 0.8 (0.7-1.9); ALBUMIN 3.2 G/DL (3.5-5.0); BUN (BLOOD UREA NITROGEN) 8 MG/DL (6-23); CALCIUM, SERUM 7.9 MG/DL (8.5-10.4); CHLORIDE, SERUM 115 MMOL/L (96-112); CO2 (CARBON DIOXIDE) 24 MMOL/L (24-34); CREATININE 0.62 MG/DL (0.55-1.02); GFR AFRICAN AMERICAN 135 ML/MIN (>=60); GFR NON AFRICAN AMERICAN 117 ML/MIN (>=60); GLOBULIN 3.9 G/DL (2.5-4.1); POTASSIUM, SERUM 4.1 MMOL/L (3.5-5.3); SGOT(AST) 64 U/L (5-40); SGPT(ALT) 78 U/L (5-65); SODIUM, SERUM 142 MMOL/L (135-148); TOTAL BILIRUBIN 1.2 MG/DL (0-1.2); TOTAL PROTEIN 7.1 G/DL (6.0-8.5)
[2016-07-15 05:09] LABS: ALKALINE PHOSPHATASE 148 U/L (45-117); GLUCOSE, SERUM 102 MG/DL (60-99)
[2016-07-15 05:10] LABS: ANISOCYTOSIS 1+ (5-10/OIF) (0-5/OIF); EOSINOPHILS 3 %; EOSINOPHILS ABSOLUTE (CALC) 0.56 10/3/uL (0.0-0.53); LYMPHOCYTES 44 %; LYMPHOCYTES ABSOLUTE (CALC) 8.18 10/3/uL (0.67-4.30); MONOCYTES 3 %; MONOCYTES ABSOLUTE (CALC) 0.56 10/3/uL (0.21-1.20); PLATELET ESTIMATE ADQ (ADEQUATE); POLYCHROMASIA 1+ (2-5/OIF) (0-1/OIF); SEGMENTED NEUTROPHIL (0) 50 %; SICKLE CELLS(NOT ORD) OCC (0-2/OIF); TOTAL NUCLEATED CELLS 100
[2016-07-15 05:11] LABS: MACROCYTES 1+ (5-10/OIF) (0-5/OIF)
[2016-07-16] MEDS ORDERED: P20 PO (09:41)
[2016-07-17] MEDS ORDERED: PROVHFA INH (01:08)
[2016-07-17] MEDS ORDERED: EXJADE500 MG PO (01:09)
[2016-07-17] MEDS ORDERED: HYDREA PO (01:09)
[2016-07-17] MEDS ORDERED: FOLIC PO (01:09)
[2016-07-17] MEDS ORDERED: ROXICODONE30 MG PO (01:10)
[2016-07-17] MEDS ORDERED: OXYCON80 PO (01:11)
[2016-07-17] MEDS ORDERED: XARELTO20 MG PO (01:11)
[2016-09-20] MEDS ORDERED: FOLIC PO (16:18)
[2016-09-20] MEDS ORDERED: XARELTO20 MG PO (16:19)
[2016-09-20] MEDS ORDERED: HYDREA PO (16:19)
[2016-09-20] MEDS ORDERED: OXYCON80 PO (16:20)
[2016-09-20] MEDS ORDERED: PROVHFA INH (16:21)
[2016-09-20] MEDS ORDERED: ROXICODONE30 MG PO (16:21)
[2016-09-20] MEDS ORDERED: PR25 PO (16:21)
[2016-09-20] MEDS ORDERED: EXJADE500 MG PO (16:21)
== END 2016-07-16 17:28 | disposition home or self-care (01) | DRG 812 ==
LOC: ER 12:19 → CDU1 15:31 → 4EA 16:30
PROVIDERS: Emergency Medicine; Family Medicine; Internal Medicine; Nurse Practitioner Adult Health
DX: D57.00 Hb-SS disease with crisis, unspecified (principal); I82.409 Acute embolism and thrombosis of unspecified deep veins of unspecified lower extremity; Z51.5 Encounter for palliative care; D72.829 Elevated white blood cell count, unspecified; Z79.01 Long term (current) use of anticoagulants
CPT/HCPCS: 71010; 80048; 80053; 81001; 83615; 85007; 85025; 85027; 85045; 96374; 99285; A9270-GY; J1170; J1200; J1885

== ENCOUNTER 2016-07-16 23:40 | Inpatient (IN) | payer BC ==
--- NOTE | ~2016-07-16 | HP ---
History And Physical [place] [address] [facility] [place]. [address] NAME: STEPHEN BREWER : 80 STATUS : ADM IN [facility]#: [id number] AGE: 35 ADM/REG DATE : 07/17/16 MR#: [id number] REPORT SERV DATE: 07/17/16 DICTATED BY: ANUPAM LARES DATE: 07/17/16 REPORT STATUS : Draft TRANSCRIBED BY: MODKaycee DATE: 07/17/16 DATE OF ADMISSION: 07/17/2016 CHIEF COMPLAINT: A 35-year-old female with sickle cell anemia, now with crisis pain. HISTORY OF PRESENT ILLNESS: The patient's history was obtained through careful interview with the patient, coupled with review of [facility] medical records. The patient was admitted for sickle cell anemia crisis on 07/11/2016. She experienced exquisite amount of pain that she describes as suffering between 07/11/2016 and 07/15/2016 when she was finally discharged from the hospital, which she felt that she never truly improved. In fact, when she returned home over the last 24 hours prior to admission, she just had continued pain that became debilitating. She describes pain "everywhere." Literally, when I ask her about pain in any part of her body, she states that she has some including her joints or muscles, her torso, her abdomen, her head, her neck, her throat, her chest, her legs and arms. She describes cramping discomfort of 11/10 severity. Of particular concern to the patient is a new onset abdominal pain along with all of her pain. It seems to localize in her left lower quadrant, a cramping quality, also 11/10 severity. No fevers or chills, but she has been diaphoretic. No nausea, vomiting. She has had shortness of breath characterized by dyspnea on exertion. No cough. REVIEW OF SYSTEMS: Otherwise, a 14-point review of systems was obtained and was negative. PAST MEDICAL HISTORY: 1. Sickle cell anemia. 2. Pulmonary embolism/DVT, on chronic Xarelto. 3. Depression. 4. MRSA. 5. Hypertension. 6. Diastolic congestive heart failure. 7. Secondary hemochromatosis from iron overload transfusions. 8. Pneumonia. 9. Splenomegaly. 10.Avascular necrosis of the hips and shoulders, status post replacements. 11.Urinary tract infection. 12.Chronic leukocytosis. History And Physical [place] [address] [place]. [address] NAME: STEPHEN BREWER : 80 STATUS : ADM IN [facility]#: [id number] AGE: 35 ADM/REG DATE : 07/17/16 MR#: [id number] REPORT SERV DATE: 07/17/16 DICTATED BY: ANUPAM LARES DATE: 07/17/16 REPORT STATUS : Draft TRANSCRIBED BY: FLORENTINO DATE: 07/17/16 PAST SURGICAL HISTORY: 1. Bilateral shoulder surgeries. 2. Bilateral hip surgeries. 3. Cholecystectomy. 4. Tubal ligation. 5. C sections. ALLERGIES: PENICILLIN AND MORPHINE. SOCIAL HISTORY: She is . Has a 13-year-old daughter. No tobacco abuse. No alcohol abuse. FAMILY HISTORY: Sister and aunt with sickle cell anemia. CURRENT MEDICATIONS: Include albuterol inhaler, Exjade 500 mg p.o. daily, folic acid p.o. daily, hydroxyurea 500 mg p.o. b.i.d., Roxicodone 30 mg p.o. four times a day, OxyContin 240 mg p.o. q.8 hours, and Xarelto 20 mg p.o. daily. PHYSICAL EXAMINATION: VITAL SIGNS: Temperature 98.1, pulse 133, blood pressure 140/95, respiratory rate 18, and O2 saturation 95% on 3 L nasal cannula. GENERAL: The patient is literally screaming and writhing in bed with pain. She has been this way for several hours in the hospital. She will only have momentary relief of pain with IV narcotic pain management but is quite agitated and animated related to her pain complaints. HEENT: Pupils equal, round, and reactive to light. No conjunctival pallor. No scleral icterus. Nares are patent. Oropharynx is clear of obstruction. Moist mucous membranes. NECK: Trachea midline. No thyromegaly. LYMPH: No cervical lymphadenopathy. No supraclavicular lymphadenopathy. RESPIRATORY: Clear to auscultation at bases. No wheezes, rales, or rhonchi. Normal respiratory effort. CARDIOVASCULAR: Tachycardic, regular rhythm. No murmurs, rubs, or gallops. No current extremity edema is appreciated. ABDOMEN: Specific left lower quadrant abdominal pain. A very "tight" exam with distention but active bowel tones. No hepatosplenomegaly. DERMATOLOGICAL: Warm and dry extremities. No pallor. No cyanosis. PSYCHIATRIC: An animated affect and mood. Irritable as well. Alert and oriented x3. LABORATORY DATA: White blood cell count 22.6, hemoglobin 6.9, hematocrit 14.5, and platelets 399. Sodium 144, potassium 4.1, chloride 109, bicarb 26, BUN 9, creatinine 0.6, glucose 114, reticulocyte count 10, AST 64, ALT 78, alkaline phosphatase 147, and total bilirubin 1.8. ASSESSMENT AND PLAN: 1. Sickle cell crisis. Place on a SUPERVISOR OF INSTRUCTION Dilaudid, IV fluids. Transfuse blood. Consult Dr. Nava, oncologist. 2. Chronic leukocytosis. Check procalcitonin. History And Physical [address] [address] NAME: STEPHEN BREWER : 80 STATUS : ADM IN [facility]#: [id number] AGE: 35 ADM/REG DATE : 07/17/16 MR#: [id number] REPORT SERV DATE: 07/17/16 DICTATED BY: ANUPAM LARES DATE: 07/17/16 REPORT STATUS : Draft TRANSCRIBED BY: FLORENTINO DATE: 07/17/16 3. Abdominal pain. Check a CT scan of the abdomen and pelvis. 4. Dyspnea: Check chest x-ray. 5. History of pulmonary embolism, on Xarelto. 6. Secondary hemochromatosis. We will place on iron chelation with transfusion of blood. KPL/MODL Anupam Lares M.D. / [id number] CC: MD Dario Jimenez M.D.
--- NOTE | ~2016-07-16 | DS ---
Discharge Summary [place] [address] [facility] [place]. [address] NAME: STEPHEN BREWER : 80 STATUS : DIS IN PAT#: [id number] AGE: 35 ADM/REG DATE : 07/17/16 MR#: [id number] REPORT SERV DATE: 07/25/16 DICTATED BY: DATE: REPORT STATUS : Draft TRANSCRIBED BY: MODL DATE: 07/24/16 ADMISSION DATE: 07/17/2016 DISCHARGE DATE: 07/24/2016 DISCHARGE DIAGNOSES: 1. Sickle cell crisis. 2. Pain due to sickle cell crisis. 3. Chronic leukocytosis. 4. History of pulmonary embolism. 5. Hemochromatosis. 6. Constipation. 7. Chronic obstructive pulmonary disease. CONSULTING PHYSICIAN: Include Dr. Harish Allred for Pain Management. DISCHARGE MEDICATIONS: Include Exjade 500 mg p.o. daily, folic acid 1 mg p.o. daily, hydroxyurea 500 mg p.o. b.i.d., Xarelto 20 mg p.o. at bedtime, Roxicodone 30 mg p.o. four times a day p.r.n. for breakthrough pain, OxyContin 240 mg p.o. q.8 hours scheduled for pain, Proventil two puffs inhalation q.4 hours p.r.n. for shortness of breath. IMAGING: Includes venous Doppler of the right upper extremity to rule out DVT, which was negative. CT of the abdomen and pelvis demonstrated diffuse gas filled small bowel and colon with mild fecal burden in the colon. No GI tract obstruction was noted. Stigmata of sickle cell disease with extremely diminished size, spleen, diffuse sclerosis of bone, J shaped vertebrae, bilateral hip replacements likely from prior avascular necrosis, mild subsegmental atelectasis at the lung bases. Portable chest x-ray demonstrated bibasilar subsegmental atelectasis. For full H and P, please refer to Dr. Antonio Montoya's dictation, 07/17/2016. HOSPITAL COURSE/PROBLEM LIST: 1. Sickle cell crisis. The patient's pain has decreased significantly. Her requirements on the PROJECT CONSULTANT have decreased daily. She was managed by Dr. Allred with Pain Management. The patient is on her home medication regimen of OxyContin and Roxicodone as mentioned above. She states her pain is still over 6/10, but this is normal for her. She will follow up with Dr. Allred as an outpatient. 2. Chronic leukocytosis. Today, her white blood cell count is 15,000, she has ranged from 13,000 to 16,000 during her hospital admission. Procalcitonin was checked on 07/22/2016 that was negative at 0.40. Also, UA was performed that was negative as well as the chest x-ray that was mentioned above and she has been afebrile and is nontoxic in appearance. Follow up with her primary care provider for further monitoring of the white blood cell count. 3. History of pulmonary embolism. The patient is on Xarelto and we will continue this upon discharge. 4. Hemochromatosis. The patient is on Exjade and will also continue this upon discharge. 5. Constipation. This is resolved with MiraLax. The patient was instructed to take MiraLax p.r.n. as needed after discharge. Discharge Summary [address] [address] NAME: STEPHEN BREWER : 80 STATUS : DIS IN PAT#: [id number] AGE: 35 ADM/REG DATE : 07/17/16 MR#: [id number] REPORT SERV DATE: 07/25/16 DICTATED BY: DATE: REPORT STATUS : Draft TRANSCRIBED BY: FLORENTINO DATE: 07/24/16 6. COPD. Continue the patient's albuterol p.r.n. for shortness of breath. She can follow up with her primary care provider for further monitoring and management of this. DICTATED BY: DELORIS Donaldson/MARISELAL Oliverio Solorzano NP / [id number] CC: MD Dario He M.D. Robert Warren Goldmann, M.D.
[2016-07-16 23:34] LABS: ER CBC TAT 0 Hrs 07 Mins; MEAN CORPUS HGB CONC 35.4 g/dL (32.0-36.0); MEAN CORPUSCULAR HEMOGLOB 36.3 pg (26.0-34.0); MEAN CORPUSCULAR VOLUME 102.6 fL (80-100); MEAN PLATELET VOLUME 9.1 fL (9.2-13.0); NUCLEATED RED BLOOD CELLS 19.1 /100WBC (0-0); PLATELET COUNT 399 10/3/uL (150-400); RBC DISTRIBUTION WIDTH 19.2 % (12.0-16.0); WHITE BLOOD CELLS 22.6 10/3/uL (4.5-10.5)
[2016-07-16 23:35] LABS: HEMOGLOBIN 6.9 g/dL (12.0-16.0)
[2016-07-16 23:36] LABS: HEMATOCRIT 19.5 % (36.0-48.0)
[2016-07-16 23:37] LABS: MANUAL DIFF YES %
[2016-07-16 23:38] LABS: RETICULOCYTE COUNT ABSOLUTE 190.2 10/3/uL (20.2-119.8)
[~2016-07-16 23:40] MED LIST changes: +P20 PO; +PROVHFA INH
[2016-07-16 23:50] LABS: BUN (BLOOD UREA NITROGEN) 9 MG/DL (6-23); CALCIUM, SERUM 8.7 MG/DL (8.5-10.4); CHLORIDE, SERUM 109 MMOL/L (96-112); CO2 (CARBON DIOXIDE) 26 MMOL/L (24-34); CREATININE 0.56 MG/DL (0.55-1.02); GFR AFRICAN AMERICAN 140 ML/MIN (>=60); GFR NON AFRICAN AMERICAN 121 ML/MIN (>=60); GLUCOSE, SERUM 114 MG/DL (60-99); POTASSIUM, SERUM 4.1 MMOL/L (3.5-5.3); SODIUM, SERUM 144 MMOL/L (135-148)
[2016-07-17 00:06] LABS: ER DIFF TAT 0 Hrs 39 Mins; LYMPHOCYTES 12 %; LYMPHOCYTES ABSOLUTE (CALC) 2.71 10/3/uL (0.67-4.30); MONOCYTES 7 %; MONOCYTES ABSOLUTE (CALC) 1.58 10/3/uL (0.21-1.20); NEUTROPHILS ABSOLUTE (CALC) 18.31 10/3/uL (2.02-8.40); SEGMENTED NEUTROPHIL (0) 81 %; TOTAL NUCLEATED CELLS 100
[2016-07-17 00:07] LABS: ANISOCYTOSIS 1+ (5-10/OIF) (0-5/OIF); PLATELET ESTIMATE ADQ (ADEQUATE); SICKLE CELLS(NOT ORD) FEW (3-10/OIF)
[2016-07-17 00:08] LABS: MACROCYTES 1+ (5-10/OIF) (0-5/OIF); POLYCHROMASIA 1+ (2-5/OIF) (0-1/OIF)
[2016-07-17 00:28] LABS: ALBUMIN 3.7 G/DL (3.5-5.0); ALKALINE PHOSPHATASE 147 U/L (45-117); SGOT(AST) 64 U/L (5-40); SGPT(ALT) 78 U/L (5-65); TOTAL PROTEIN 8.2 G/DL (6.0-8.5)
[2016-07-17 00:29] LABS: DIRECT BILIRUBIN 0.5 MG/DL (0.0-0.4); INDIRECT BILIRUBIN(NOT ORDER) 1.3 MG/DL (0.1-0.9); TOTAL BILIRUBIN 1.8 MG/DL (0-1.2)
[2016-07-17] MEDS ORDERED: PROVHFA INH (01:08)
[2016-07-17] MEDS ORDERED: HYDREA PO (01:09)
[2016-07-17] MEDS ORDERED: EXJADE500 MG PO (01:09)
[2016-07-17] MEDS ORDERED: FOLIC PO (01:09)
[2016-07-17] MEDS ORDERED: ROXICODONE30 MG PO (01:10)
[2016-07-17] MEDS ORDERED: XARELTO20 MG PO (01:11)
[2016-07-17] MEDS ORDERED: OXYCON80 PO (01:11)
[2016-07-17 19:12] LABS: INTERNATIONAL NORMAL RATI 2.2 UNITS (-)
[2016-07-17 19:17] LABS: HEMATOCRIT 21.7 % (36.0-48.0); HEMOGLOBIN 7.6 g/dL (12.0-16.0); MEAN CORPUSCULAR HEMOGLOB 34.9 pg (26.0-34.0); MEAN CORPUSCULAR VOLUME 99.5 fL (80-100); MEAN PLATELET VOLUME 9.5 fL (9.2-13.0); NUCLEATED RED BLOOD CELLS 40.8 /100WBC (0-0); PLATELET COUNT 306 10/3/uL (150-400); RED CELL COUNT 2.18 10/6/uL (4.0-5.6)
[2016-07-17 19:19] LABS: MANUAL DIFF YES %
[2016-07-17 19:27] LABS: A/G RATIO 0.8 (0.7-1.9); ALBUMIN 3.5 G/DL (3.5-5.0); CALCIUM, SERUM 8.4 MG/DL (8.5-10.4); CHLORIDE, SERUM 104 MMOL/L (96-112); CO2 (CARBON DIOXIDE) 23 MMOL/L (24-34); CREATININE 0.61 MG/DL (0.55-1.02); GFR AFRICAN AMERICAN 136 ML/MIN (>=60); GFR NON AFRICAN AMERICAN 117 ML/MIN (>=60); GLOBULIN 4.3 G/DL (2.5-4.1); GLUCOSE, SERUM 100 MG/DL (60-99); POTASSIUM, SERUM 4.2 MMOL/L (3.5-5.3); SGOT(AST) 113 U/L (5-40); SGPT(ALT) 71 U/L (5-65); TOTAL PROTEIN 7.8 G/DL (6.0-8.5)
[2016-07-17 19:28] LABS: ALKALINE PHOSPHATASE 201 U/L (45-117); BUN (BLOOD UREA NITROGEN) 16 MG/DL (6-23); CK-MB 3.8 NG/ML; CPK 348 U/L (0-200); SODIUM, SERUM 137 MMOL/L (135-148); TOTAL BILIRUBIN 2.4 MG/DL (0-1.2)
[2016-07-17 19:29] LABS: TROPONIN I 0.07 NG/ML (<0.05); ULTRASENSITIVE TSH 0.334 MCIU/ML (0.358-3.740)
[2016-07-17 19:34] LABS: BAND NEUTROPHILS 1 %; IMMATURE GRANS ABSOLUTE (CALC) 0.26 10/3/uL (0.0-0.11); LYMPHOCYTES 19 %; LYMPHOCYTES ABSOLUTE (CALC) 4.94 10/3/uL (0.67-4.30); METAMYELOCYTES 1 %; MONOCYTES 7 %; MONOCYTES ABSOLUTE (CALC) 1.82 10/3/uL (0.21-1.20); NEUTROPHILS ABSOLUTE (CALC) 18.98 10/3/uL (2.02-8.40); SEGMENTED NEUTROPHIL (0) 72 %; TOTAL NUCLEATED CELLS 100
[2016-07-17 19:36] LABS: ANISOCYTOSIS 1+ (5-10/OIF) (0-5/OIF)
[2016-07-17 19:43] LABS: PLATELET ESTIMATE ADQ (ADEQUATE)
[2016-07-17 19:44] LABS: SICKLE CELLS(NOT ORD) FEW (3-10/OIF)
[2016-07-17 19:45] LABS: POLYCHROMASIA 1+ (2-5/OIF) (0-1/OIF)
[2016-07-17 20:03] LABS: PROCALCITONIN 2.92 ng/mL (<0.5)
[2016-07-18 08:50] LABS: A/G RATIO 0.7 (0.7-1.9); ALBUMIN 3.2 G/DL (3.5-5.0); BUN (BLOOD UREA NITROGEN) 17 MG/DL (6-23); CALCIUM, SERUM 8.5 MG/DL (8.5-10.4); CHLORIDE, SERUM 101 MMOL/L (96-112); CO2 (CARBON DIOXIDE) 26 MMOL/L (24-34); CREATININE 0.65 MG/DL (0.55-1.02); GFR AFRICAN AMERICAN 133 ML/MIN (>=60); GFR NON AFRICAN AMERICAN 115 ML/MIN (>=60); GLOBULIN 4.4 G/DL (2.5-4.1); GLUCOSE, SERUM 101 MG/DL (60-99); POTASSIUM, SERUM 3.8 MMOL/L (3.5-5.3); SGOT(AST) 134 U/L (5-40); SGPT(ALT) 71 U/L (5-65); SODIUM, SERUM 134 MMOL/L (135-148); TOTAL PROTEIN 7.6 G/DL (6.0-8.5)
[2016-07-18 08:51] LABS: ALKALINE PHOSPHATASE 262 U/L (45-117); TOTAL BILIRUBIN 1.7 MG/DL (0-1.2); VANCOMYCIN TROUGH < 0.8 MCG/ML (10.0-20.0)
[2016-07-18 09:01] LABS: MEAN CORPUS HGB CONC 35.9 g/dL (32.0-36.0); MEAN CORPUSCULAR HEMOGLOB 33.8 pg (26.0-34.0); MEAN PLATELET VOLUME 9.3 fL (9.2-13.0); NUCLEATED RED BLOOD CELLS 75.2 /100WBC (0-0); PLATELET COUNT 273 10/3/uL (150-400); RBC DISTRIBUTION WIDTH 20.1 % (12.0-16.0); WHITE BLOOD CELLS 19.9 10/3/uL (4.5-10.5)
[2016-07-18 09:12] LABS: HEMOGLOBIN 9.2 g/dL (12.0-16.0); RED CELL COUNT 2.72 10/6/uL (4.0-5.6)
[2016-07-18 09:13] LABS: HEMATOCRIT 25.6 % (36.0-48.0); MANUAL DIFF YES %; MEAN CORPUSCULAR VOLUME 94.1 fL (80-100)
[2016-07-18 09:22] LABS: ANISOCYTOSIS 1+ (5-10/OIF) (0-5/OIF); LYMPHOCYTES 17 %; LYMPHOCYTES ABSOLUTE (CALC) 3.38 10/3/uL (0.67-4.30); MONOCYTES 3 %; NEUTROPHILS ABSOLUTE (CALC) 15.92 10/3/uL (2.02-8.40); PLATELET ESTIMATE ADQ (ADEQUATE); SEGMENTED NEUTROPHIL (0) 80 %; TOTAL NUCLEATED CELLS 100
[2016-07-18 09:23] LABS: POLYCHROMASIA 1+ (2-5/OIF) (0-1/OIF)
[2016-07-18 09:24] LABS: TARGET CELLS OCC (1-2/OIF) (0-1/OIF)
[2016-07-19 05:25] LABS: HEMATOCRIT 27.9 % (36.0-48.0); HEMOGLOBIN 9.9 g/dL (12.0-16.0); MEAN CORPUS HGB CONC 35.5 g/dL (32.0-36.0); MEAN CORPUSCULAR HEMOGLOB 34.3 pg (26.0-34.0); MEAN CORPUSCULAR VOLUME 96.5 fL (80-100); MEAN PLATELET VOLUME 9.4 fL (9.2-13.0); NUCLEATED RED BLOOD CELLS 105.4 /100WBC (0-0); PLATELET COUNT 286 10/3/uL (150-400); RBC DISTRIBUTION WIDTH 19.5 % (12.0-16.0); RED CELL COUNT 2.89 10/6/uL (4.0-5.6); WHITE BLOOD CELLS 16.1 10/3/uL (4.5-10.5)
[2016-07-19 05:27] LABS: MANUAL DIFF YES %
[2016-07-19 05:37] LABS: A/G RATIO 0.7 (0.7-1.9); ALBUMIN 2.9 G/DL (3.5-5.0); ALKALINE PHOSPHATASE 263 U/L (45-117); BUN (BLOOD UREA NITROGEN) 14 MG/DL (6-23); CALCIUM, SERUM 8.4 MG/DL (8.5-10.4); CHLORIDE, SERUM 104 MMOL/L (96-112); CO2 (CARBON DIOXIDE) 28 MMOL/L (24-34); CREATININE 0.56 MG/DL (0.55-1.02); GFR AFRICAN AMERICAN 140 ML/MIN (>=60); GFR NON AFRICAN AMERICAN 121 ML/MIN (>=60); GLOBULIN 4.4 G/DL (2.5-4.1); GLUCOSE, SERUM 108 MG/DL (60-99); POTASSIUM, SERUM 3.7 MMOL/L (3.5-5.3); SGOT(AST) 100 U/L (5-40); SGPT(ALT) 66 U/L (5-65); SODIUM, SERUM 138 MMOL/L (135-148); TOTAL BILIRUBIN 1.6 MG/DL (0-1.2); TOTAL PROTEIN 7.3 G/DL (6.0-8.5)
[2016-07-19 07:25] LABS: BAND NEUTROPHILS 1 %; LYMPHOCYTES 18 %; MONOCYTES 5 %; MONOCYTES ABSOLUTE (CALC) 0.81 10/3/uL (0.21-1.20); SEGMENTED NEUTROPHIL (0) 76 %; TOTAL NUCLEATED CELLS 100
[2016-07-19 07:26] LABS: ANISOCYTOSIS 1+ (5-10/OIF) (0-5/OIF); MACROCYTES 1+ (5-10/OIF) (0-5/OIF); PLATELET ESTIMATE ADQ (ADEQUATE); TARGET CELLS OCC (1-2/OIF) (0-1/OIF)
[2016-07-19 07:27] LABS: POLYCHROMASIA 1+ (2-5/OIF) (0-1/OIF)
[2016-07-20 05:00] LABS: HEMATOCRIT 27.9 % (36.0-48.0); HEMOGLOBIN 9.5 g/dL (12.0-16.0); MEAN CORPUS HGB CONC 34.1 g/dL (32.0-36.0); MEAN CORPUSCULAR HEMOGLOB 33.3 pg (26.0-34.0); MEAN CORPUSCULAR VOLUME 97.9 fL (80-100); MEAN PLATELET VOLUME 9.8 fL (9.2-13.0); NUCLEATED RED BLOOD CELLS 115.5 /100WBC (0-0); PLATELET COUNT 273 10/3/uL (150-400); RBC DISTRIBUTION WIDTH 19.5 % (12.0-16.0); RED CELL COUNT 2.85 10/6/uL (4.0-5.6); WHITE BLOOD CELLS 14.1 10/3/uL (4.5-10.5)
[2016-07-20 05:01] LABS: MANUAL DIFF YES %
[2016-07-20 05:15] LABS: A/G RATIO 0.6 (0.7-1.9); ALBUMIN 2.6 G/DL (3.5-5.0); CHLORIDE, SERUM 104 MMOL/L (96-112); CO2 (CARBON DIOXIDE) 29 MMOL/L (24-34); CREATININE 0.48 MG/DL (0.55-1.02); GFR AFRICAN AMERICAN 147 ML/MIN (>=60); GFR NON AFRICAN AMERICAN 127 ML/MIN (>=60); GLOBULIN 4.1 G/DL (2.5-4.1); GLUCOSE, SERUM 105 MG/DL (60-99); POTASSIUM, SERUM 3.5 MMOL/L (3.5-5.3); SGOT(AST) 65 U/L (5-40); SGPT(ALT) 50 U/L (5-65); SODIUM, SERUM 139 MMOL/L (135-148); TOTAL PROTEIN 6.7 G/DL (6.0-8.5)
[2016-07-20 05:18] LABS: ALKALINE PHOSPHATASE 239 U/L (45-117); BUN (BLOOD UREA NITROGEN) 8 MG/DL (6-23)
[2016-07-20 05:20] LABS: ANISOCYTOSIS 1+ (5-10/OIF) (0-5/OIF); EOSINOPHILS 1 %; EOSINOPHILS ABSOLUTE (CALC) 0.14 10/3/uL (0.0-0.53); LYMPHOCYTES 23 %; LYMPHOCYTES ABSOLUTE (CALC) 3.24 10/3/uL (0.67-4.30); MONOCYTES 7 %; MONOCYTES ABSOLUTE (CALC) 0.99 10/3/uL (0.21-1.20); NEUTROPHILS ABSOLUTE (CALC) 9.73 10/3/uL (2.02-8.40); PLATELET ESTIMATE ADQ (ADEQUATE); POLYCHROMASIA 1+ (2-5/OIF) (0-1/OIF); SCHISTOCYTES OCC (0-2/OIF); SEGMENTED NEUTROPHIL (0) 69 %; TOTAL NUCLEATED CELLS 100
[2016-07-21 05:25] LABS: HEMATOCRIT 26.9 % (36.0-48.0); HEMOGLOBIN 9.2 g/dL (12.0-16.0); MEAN CORPUS HGB CONC 34.2 g/dL (32.0-36.0); MEAN CORPUSCULAR HEMOGLOB 33.9 pg (26.0-34.0); MEAN CORPUSCULAR VOLUME 99.3 fL (80-100); NUCLEATED RED BLOOD CELLS 50.3 /100WBC (0-0); PLATELET COUNT 271 10/3/uL (150-400); RBC DISTRIBUTION WIDTH 18.9 % (12.0-16.0); RED CELL COUNT 2.71 10/6/uL (4.0-5.6); WHITE BLOOD CELLS 16.1 10/3/uL (4.5-10.5)
[2016-07-21 05:27] LABS: MANUAL DIFF YES %
[2016-07-21 05:33] LABS: A/G RATIO 0.6 (0.7-1.9); ALBUMIN 2.7 G/DL (3.5-5.0); ALKALINE PHOSPHATASE 246 U/L (45-117); BUN (BLOOD UREA NITROGEN) 6 MG/DL (6-23); CALCIUM, SERUM 8.3 MG/DL (8.5-10.4); CHLORIDE, SERUM 104 MMOL/L (96-112); CO2 (CARBON DIOXIDE) 28 MMOL/L (24-34); CREATININE 0.47 MG/DL (0.55-1.02); GFR AFRICAN AMERICAN 148 ML/MIN (>=60); GFR NON AFRICAN AMERICAN 128 ML/MIN (>=60); GLOBULIN 4.2 G/DL (2.5-4.1); GLUCOSE, SERUM 107 MG/DL (60-99); POTASSIUM, SERUM 3.9 MMOL/L (3.5-5.3); SGOT(AST) 53 U/L (5-40); SGPT(ALT) 46 U/L (5-65); SODIUM, SERUM 138 MMOL/L (135-148); TOTAL BILIRUBIN 0.8 MG/DL (0-1.2); TOTAL PROTEIN 6.9 G/DL (6.0-8.5)
[2016-07-21 06:23] LABS: EOSINOPHILS 3 %; EOSINOPHILS ABSOLUTE (CALC) 0.48 10/3/uL (0.0-0.53); IMMATURE GRANS ABSOLUTE (CALC) 0.81 10/3/uL (0.0-0.11); LYMPHOCYTES 25 %; LYMPHOCYTES ABSOLUTE (CALC) 4.03 10/3/uL (0.67-4.30); METAMYELOCYTES 3 %; MONOCYTES 1 %; MONOCYTES ABSOLUTE (CALC) 0.16 10/3/uL (0.21-1.20); MYELOCYTES 2 %; NEUTROPHILS ABSOLUTE (CALC) 10.63 10/3/uL (2.02-8.40); PLATELET ESTIMATE ADQ (ADEQUATE); SEGMENTED NEUTROPHIL (0) 66 %; TOTAL NUCLEATED CELLS 100
[2016-07-21 06:24] LABS: ANISOCYTOSIS 1+ (5-10/OIF) (0-5/OIF); BASOPHILIC STIPPLING 1+ (2-5/OIF) (0-1/OIF); SICKLE CELLS(NOT ORD) OCC (0-2/OIF)
[2016-07-21 06:25] LABS: POLYCHROMASIA 1+ (2-5/OIF) (0-1/OIF)
[2016-07-21 13:08] LABS: ASCORBIC ACID (UR NOT ORDER) NEG (NEG); BILIRUBIN, URINE NEGATIVE (NEG); KETONE, URINE NEGATIVE (NEG); LEUKOCYTE ESTERASE(NOT OR NEG (NEG); WBC (NOT ORDERED) (RFLEX) 1 (0-5)
[2016-07-22 08:03] LABS: BASOPHILS 0.3 %; BASOPHILS ABSOLUTE 0.04 10/3/uL (0.0-0.16); EOSINOPHILS 5.1 %; EOSINOPHILS ABSOLUTE 0.74 10/3/uL (0.0-0.53); HEMATOCRIT 27.6 % (36.0-48.0); HEMOGLOBIN 9.2 g/dL (12.0-16.0); IMMATURE GRANULOCYTES 0.5 %; IMMATURE GRANULOCYTES ABSOLUTE 0.07 10/3/uL (0.0-0.11); LYMPHOCYTES 24.4 %; LYMPHOCYTES ABSOLUTE 3.54 10/3/uL (0.67-4.30); MEAN CORPUS HGB CONC 33.3 g/dL (32.0-36.0); MEAN CORPUSCULAR HEMOGLOB 33.1 pg (26.0-34.0); MEAN CORPUSCULAR VOLUME 99.3 fL (80-100); MONOCYTES 10.7 %; MONOCYTES ABSOLUTE 1.55 10/3/uL (0.21-1.20); NEUTROPHILS ABSOLUTE 8.56 10/3/uL (2.02-8.40); NUCLEATED RED BLOOD CELLS 19.8 /100WBC (0-0); PLATELET COUNT 311 10/3/uL (150-400); RBC DISTRIBUTION WIDTH 18.4 % (12.0-16.0); RED CELL COUNT 2.78 10/6/uL (4.0-5.6); WHITE BLOOD CELLS 14.5 10/3/uL (4.5-10.5)
[2016-07-22 08:04] LABS: MANUAL DIFF NO %
[2016-07-22 08:09] LABS: BUN (BLOOD UREA NITROGEN) 6 MG/DL (6-23); CALCIUM, SERUM 8.3 MG/DL (8.5-10.4); CHLORIDE, SERUM 102 MMOL/L (96-112); CO2 (CARBON DIOXIDE) 30 MMOL/L (24-34); CREATININE 0.46 MG/DL (0.55-1.02); GFR AFRICAN AMERICAN 149 ML/MIN (>=60); GFR NON AFRICAN AMERICAN 129 ML/MIN (>=60); GLUCOSE, SERUM 99 MG/DL (60-99); POTASSIUM, SERUM 4.2 MMOL/L (3.5-5.3); SODIUM, SERUM 138 MMOL/L (135-148)
[2016-07-23 07:23] LABS: HEMATOCRIT 27.5 % (36.0-48.0); HEMOGLOBIN 9.1 g/dL (12.0-16.0); MEAN CORPUS HGB CONC 33.1 g/dL (32.0-36.0); MEAN CORPUSCULAR HEMOGLOB 33.1 pg (26.0-34.0); MEAN PLATELET VOLUME 9.6 fL (9.2-13.0); NUCLEATED RED BLOOD CELLS 5.5 /100WBC (0-0); PLATELET COUNT 361 10/3/uL (150-400); RBC DISTRIBUTION WIDTH 18.3 % (12.0-16.0); RED CELL COUNT 2.75 10/6/uL (4.0-5.6)
[2016-07-23 07:29] LABS: A/G RATIO 0.6 (0.7-1.9); ALBUMIN 2.7 G/DL (3.5-5.0); ALKALINE PHOSPHATASE 242 U/L (45-117); BUN (BLOOD UREA NITROGEN) 6 MG/DL (6-23); CALCIUM, SERUM 8.2 MG/DL (8.5-10.4); CHLORIDE, SERUM 99 MMOL/L (96-112); CO2 (CARBON DIOXIDE) 30 MMOL/L (24-34); GFR AFRICAN AMERICAN 137 ML/MIN (>=60); GFR NON AFRICAN AMERICAN 118 ML/MIN (>=60); GLOBULIN 4.5 G/DL (2.5-4.1); GLUCOSE, SERUM 107 MG/DL (60-99); POTASSIUM, SERUM 4.2 MMOL/L (3.5-5.3); SGOT(AST) 69 U/L (5-40); SGPT(ALT) 58 U/L (5-65); SODIUM, SERUM 134 MMOL/L (135-148); TOTAL BILIRUBIN 0.5 MG/DL (0-1.2); TOTAL PROTEIN 7.2 G/DL (6.0-8.5)
[2016-07-23 07:35] LABS: MANUAL DIFF YES %
[2016-07-23 07:51] LABS: ANISOCYTOSIS 1+ (5-10/OIF) (0-5/OIF); EOSINOPHILS 4 %; EOSINOPHILS ABSOLUTE (CALC) 0.52 10/3/uL (0.0-0.53); LYMPHOCYTES 28 %; LYMPHOCYTES ABSOLUTE (CALC) 3.64 10/3/uL (0.67-4.30); MACROCYTES 1+ (5-10/OIF) (0-5/OIF); MONOCYTES 9 %; MONOCYTES ABSOLUTE (CALC) 1.17 10/3/uL (0.21-1.20); NEUTROPHILS ABSOLUTE (CALC) 7.67 10/3/uL (2.02-8.40); PLATELET ESTIMATE ADQ (ADEQUATE); POLYCHROMASIA 1+ (2-5/OIF) (0-1/OIF); SEGMENTED NEUTROPHIL (0) 59 %; TOTAL NUCLEATED CELLS 100
[2016-07-23 07:52] LABS: POIKILOCYTOSIS 1+ (5-10/OIF) (0-5/OIF); TARGET CELLS FEW (3-10/OIF) (0-1/OIF)
[2016-07-24 09:25] LABS: BASOPHILS 0.2 %; BASOPHILS ABSOLUTE 0.03 10/3/uL (0.0-0.16); EOSINOPHILS 3.4 %; EOSINOPHILS ABSOLUTE 0.51 10/3/uL (0.0-0.53); HEMATOCRIT 28.2 % (36.0-48.0); HEMOGLOBIN 9.4 g/dL (12.0-16.0); IMMATURE GRANULOCYTES 0.6 %; IMMATURE GRANULOCYTES ABSOLUTE 0.09 10/3/uL (0.0-0.11); LYMPHOCYTES 23.2 %; LYMPHOCYTES ABSOLUTE 3.48 10/3/uL (0.67-4.30); MEAN CORPUS HGB CONC 33.3 g/dL (32.0-36.0); MEAN CORPUSCULAR VOLUME 98.9 fL (80-100); MEAN PLATELET VOLUME 9.9 fL (9.2-13.0); MONOCYTES 9.2 %; MONOCYTES ABSOLUTE 1.38 10/3/uL (0.21-1.20); NEUTROPHILS 63.4 %; NEUTROPHILS ABSOLUTE 9.53 10/3/uL (2.02-8.40); NUCLEATED RED BLOOD CELLS 2.1 /100WBC (0-0); RBC DISTRIBUTION WIDTH 17.9 % (12.0-16.0); RED CELL COUNT 2.85 10/6/uL (4.0-5.6)
[2016-07-24 09:26] LABS: MANUAL DIFF NO %; PLATELET COUNT 491 10/3/uL (150-400)
[2016-07-24] MEDS ORDERED: SENTAB PO (15:02)
[2016-07-24] MEDS ORDERED: DSS PO (15:02)
[2016-09-20] MEDS ORDERED: FOLIC PO (16:18)
[2016-09-20] MEDS ORDERED: HYDREA PO (16:19)
[2016-09-20] MEDS ORDERED: XARELTO20 MG PO (16:19)
[2016-09-20] MEDS ORDERED: OXYCON80 PO (16:20)
[2016-09-20] MEDS ORDERED: EXJADE500 MG PO (16:21)
[2016-09-20] MEDS ORDERED: ROXICODONE30 MG PO (16:21)
[2016-09-20] MEDS ORDERED: PROVHFA INH (16:21)
[2016-09-20] MEDS ORDERED: PR25 PO (16:21)
== END 2016-07-24 18:15 | disposition home or self-care (01) | DRG 812 ==
LOC: ER 23:40 → 5SO 07-17 01:44 → 4EA 07-17 15:44
PROVIDERS: Hospitalist; Internal Medicine; Nurse Practitioner Acute Care; Nurse Practitioner Adult Health
PROC: 30233N1 Transfusion of Nonautologous Red Blood Cells into Peripheral Vein, Percutaneous Approach (ICD-10-PCS; principal; 2016-07-17)
DX: D57.00 Hb-SS disease with crisis, unspecified (principal); J44.9 Chronic obstructive pulmonary disease, unspecified; E83.119 Hemochromatosis, unspecified; Z86.711 Personal history of pulmonary embolism; Z51.5 Encounter for palliative care
CPT/HCPCS: 36415; 71010; 74176; 80048; 80053; 80076; 80202; 81001; 82550; 82553; 82962; 83605; 83615; 83735; 83880; 84100; 84145; 84443; 84484; 85025; 85045; 85610; 85730; 86850; 86900; 86901; 86902; 86920; 93005; 93971; 96374; 96375; 96376; 99285; A9270-GY; J0895; J1170; J1200; J2405; P9040